=== PATIENT | male | born 1990 | race Caucasian/White ===

== ENCOUNTER 2023-10-22 13:36 | Emergency (ER) | payer OTHER, SELFPAY ==
[2023-10-22 13:58] VITALS: BP 143/81; PULSE 78; RESP 20; TEMP 36.5; O2SAT 98
--- NOTE | 2023-10-22 14:21 | ED.URI ---
HPI - URI/Sore Throat General Chief Complaint: Upper Respiratory Infection Stated Complaint: Stuffy nose, Ear pain History of Present Illness HPI Narrative: PATIENT PRESENTS WITH BILATERAL EAR PAIN AND NASAL CONGESTION. PATIENT STATES HE HAD TUBES A CHILD AND HISTORY OF RECENT EAR INFECTIONS. PATIENT DENIES ANY DRAINAGE FROM HIS EARS NO FEVER. PATIENT IS NOT TAKING ANYTHING [id number] FOR HIS SYMPTOMS. Related Data Allergies Allergy/AdvReac Type Severity Reaction Status Date / Time No Known Allergies Allergy Unverified 11/22/13 16:00 Review of Systems Review of Systems: CONSTITUTIONAL: DENIES CHILLS, OR SWEATS. REPORTS FEVER AND GENERALIZED BODY ACHES EYES: DENIES VISUAL CHANGES, REDNESS, OR DISCHARGE. ENT: DENIES OTALGIA. REPORTS NASAL CONGESTION RUNNY NOSE AND SORE THROAT CARDIOVASCULAR: DENIES CHEST PAIN, PALPITATIONS, OR EDEMA. RESPIRATORY: DENIES DYSPNEA. REPORTS OCCASIONAL COUGH GASTROINTESTINAL: DENIES ABDOMINAL PAIN, NAUSEA, VOMITING, OR DIARRHEA. GENITOURINARY: DENIES DYSURIA OR HEMATURIA. SKIN: DENIES RASH OR ITCHING. MUSCULOSKELETAL: DENIES BACK PAIN, JOINT PAIN, OR MYALGIA. REPORTS GENERALIZED BODY ACHES NEUROLOGIC: DENIES HEADACHE, NUMBNESS, OR WEAKNESS. PSYCHIATRIC: DENIES ANXIETY OR DEPRESSION. PMFSH Comments AT TIME OF SIGNATURE, AGREE WITH NURSING PAST MEDICAL, SURGICAL, SOCIAL AND FAMILY HISTORY. THERE IS NO RELEVANT FAMILY HISTORY PERTINENT TO THE PRESENTING COMPLAINT Exam Narrative: THE PATIENT IS A WELL-DEVELOPED, WELL-NOURISHED IN NO ACUTE DISTRESS. SKIN: SKIN IS WARM AND DRY WITHOUT ERYTHEMA, SWELLING OR EXUDATE. THERE IS GOOD TURGOR. NO TENTING. HEAD: ATRAUMATIC. NORMOCEPHALIC. NO TEMPORAL OR SCALP TENDERNESS. EYES: MOIST AND BRIGHT. SCLERA AND CONJUNCTIVAE NORMAL. NO DISCHARGE. PERRLA. EXTRAOCULAR MOTIONS INTACT. GROSS VISUAL ACUITY INTACT. EARS: PINNA IS NORMAL SHAPE AND CONTOUR. CLEAR EXTERNAL AUDITORY CANALS. MODERATE AMOUNT OF ERYTHEMA TO BOTH CANALS BULGING TYMPAMINC MEMBRANES BILATERALLY NOSE: PINK, MOIST MUCOSA WITH GOOD AIR MOVEMENT. CLEAR RHINORRHEA WITHOUT NASAL FLARING. SEPTUM MIDLINE. MOUTH: MOIST MUCOUS MEMBRANES. THROAT; MILD ERYTHEMA NOTED TO POSTERIOR OROPHARYNX WITH MODERATE POSTNASAL DRAINAGE. WITHOUT EXUDATE OR ULCERATION.. UVULA MIDLINE. NORMAL MOVEMENT OF SOFT PALATE. NECK: SUPPLE AND NONTENDER WITH FULL RANGE OF MOTION WITHOUT DISCOMFORT. NO MENINGEAL SIGNS. LUNGS: EQUAL AND BILATERAL BREATH SOUNDS WITHOUT WHEEZES, RALES OR RHONCHI. CHEST: THE CHEST WALL IS WITHOUT RETRACTIONS OR USE OF ACCESSORY MUSCLES. HEART: HAS A REGULAR RATE AND RHYTHM WITHOUT MURMUR, GALLOPS, CLICK OR RUB. ABDOMEN: SOFT, NONTENDER WITH POSITIVE ACTIVE BOWEL SOUNDS. NO REBOUND TENDERNESS. EXTREMITIES: WITHOUT CYANOSIS, CLUBBING OR EDEMA. EQUAL 2+ DISTAL PULSES AND 2 SECOND CAPILLARY REFILL NOTED. NEUROLOGIC: ALERT, ACTIVE, . THE PATIENT MOVES ALL EXTREMITIES WITH NORMAL MUSCLE STRENGTH. NORMAL MUSCLE TONE IS NOTED. NORMAL COORDINATION IS NOTED. NO FOCAL NEUROLOGICAL FINDINGS NOTED. Course Course Level of Care: Express Care Visit Vital Signs Vital signs: Vital Signs Temperature 36.5 C 10/22/23 13:58 Pulse Rate 78 10/22/23 13:58 Respiratory Rate 20 10/22/23 13:58 Blood Pressure 143/81 H 10/22/23 13:58 Pulse Oximetry 98 10/22/23 13:58 Oxygen Delivery Room Air 10/22/23 13:58 Temperature 36.5 C 10/22/23 13:58 Pulse Rate 78 10/22/23 13:58 Respiratory Rate 20 10/22/23 13:58 Blood Pressure 143/81 H 10/22/23 13:58 Pulse Oximetry 98 10/22/23 13:58 Oxygen Delivery Room Air 10/22/23 13:58 PLEASE HARSHIL SCHEDULE A FOLLOWUP VISIT WITH YOUR PERSONAL PHYSICIAN FOR FURTHER EVALUATION AND TREATMENT. INCLUDING RECHECK AND DISCUSSION OF YOUR BLOOD PRESSURE. IF YOUR SYMPTOMS PERSIST, CHANGE OR WORSEN SIGNIFICANTLY BEFORE YOU CAN CONTACT YOUR PERSONAL PHYSICIAN THEN PLEASE, WITHOUT DELAY, GO TO THE EMERGENCY DEPARTMENT FOR FURTHER EVALUATION Discharge Simon
== END 2023-10-22 14:36 | disposition home or self-care (01) ==
PROVIDERS: Emergency Provider Nurse Practitioner Family; PCP Family Medicine Sports Medicine
DX: H66.93 Otitis media, unspecified, bilateral (principal)
CPT/HCPCS: 99203; G0463

== ENCOUNTER 2024-09-18 16:44 | Emergency (ER) | payer OTHER, SELFPAY ==
[2024-09-18 17:08] VITALS: BP 146/84; PULSE 70; RESP 20; TEMP 36.9; O2SAT 98
--- NOTE | 2024-09-18 18:24 | ED.EAR ---
HPI - Ear Problem General Chief complaint: Ear Stated complaint: cough/ears Time Seen by Provider: 09/18/24 18:15 Source: patient, RN notes reviewed and old records reviewed Mode of arrival: ambulatory Limitations: no limitations History of Present Illness HPI Narrative: 34-year-old male who presents to Express Care complaints ear pain to the left ear for the past 2 days reports he has had some respiratory symptoms with cough and runny nose for 1.5 weeks, states cough is now loose and productive, Patient reports no known fevers chills or sweats. He denies any shortness of breath with respirations nonlabored and SAO2 98% on room air. Patient reports that he has taken some Zyrtec MD Complaint: ear pain and other (cough) Location: left ear Duration: constant Severity: moderate Discharge from ear: Reports no Treatment prior to arrival: other (Zyrtec) Related Data Allergies Allergy/AdvReac Type Severity Reaction Status Date / Time No Known Allergies Allergy Verified 09/18/24 17:11 Review of Systems Review of Systems: CONSTITUTIONAL: Denies malaise, chills, sweats, or fever. EYES: Denies visual changes, redness, or discharge. ENT: Reports rhinorrhea, congestion, sinus pressure, left otalgia and no sore throat. CARDIOVASCULAR: Denies chest pain, palpitations, or edema. RESPIRATORY: Reports productive cough.? Denies dyspnea. GASTROINTESTINAL: Denies abdominal pain, nausea, vomiting, diarrhea SKIN: Denies rash or itching. MUSCULOSKELETAL: Denies myalgia. NEUROLOGIC: Denies headache. All systems reviewed & are unremarkable except as noted in HPI and below PMFSH Social History Social History (Updated 09/21/24 @ 08:35 by Leonora Dubose NP) Smoking status: Never smoker Alcohol intake: current Alcohol use details: rare social Substance use type: does not use Living arrangements: with family Gender identity (if verbalized by the patient): Male Comments At time of signature, agree with nursing past medical, surgical, social and family history. There is no relevant family history pertinent to the presenting complaint Exam Narrative: GENERAL: Well-appearing, well-nourished, obese and in no acute distress. HEAD: Normocephalic EYES: PERRLA, conjunctivae clear ENT: Nares clear, turbinates edematous and erythematous, clear discharge. Mucous membranes moist.Left TM red and bulging,Right TM pearly sunshine with dull light reflex; no tragal tenderness. Oropharynx erythematous without lesions. Tonsils not enlarged and without exudate, no drooling, no hoarseness, no trismus, uvula midline.post nasal drainage NECK: Supple. No lymphadenopathy CHEST: Clear to auscultation, breath sounds equal. No wheezing, rhonchi, rales, or stridor. No respiratory distress, speaks in full sentences.productive cough,SAO2 98% on room air HEART: Regular rate and rhythm. No murmur heard. SKIN: Warm, dry, no rash. NEURO: Alert and oriented x3. PSYCH: Normal mood and affect Course Course Emergency Course: Patient is aware of diagnosis, understands and agrees to treatment plan.? Anticipatory guidance given.? Patient agrees to follow-up as directed and is aware of reasons to seek care at the emergency department. Portions of this record may have been created with voice recognition software Level of Care: Express Care Visit Vital Signs Vital signs: Vital Signs Temperature 36.9 C 09/18/24 17:08 Pulse Rate 70 09/18/24 17:08 Respiratory Rate 20 09/18/24 17:08 Blood Pressure 146/84 H 09/18/24 17:08 Pulse Oximetry 98 09/18/24 17:08 Oxygen Delivery Room Air 09/18/24 17:08 Temperature 36.9 C 09/18/24 17:08 Pulse Rate 70 09/18/24 17:08 Respiratory Rate 20 09/18/24 17:08 Blood Pressure 146/84 H 09/18/24 17:08 Pulse Oximetry 98 09/18/24 17:08 Oxygen Delivery Room Air 09/18/24 17:08 Reviewed Medical Decision Making Differential Diagnosis Differential Diagnosis: URI, otitis media, viral infection, sinusitis, acute cough Medical Records Medical records reviewed: Yes I reviewed the external patient's medical records. Vital Signs Vital Signs: Vital Signs Temperature 36.9 C 09/18/24 17:08 Pulse Rate 70 09/18/24 17:08 Respiratory Rate 20 09/18/24 17:08 Blood Pressure 146/84 H 09/18/24 17:08 Pulse Oximetry 98 09/18/24 17:08 Oxygen Delivery Room Air 09/18/24 17:08 Temperature 36.9 C 09/18/24 17:08 Pulse Rate 70 09/18/24 17:08 Respiratory Rate 20 09/18/24 17:08 Blood Pressure 146/84 H 09/18/24 17:08 Pulse Oximetry 98 09/18/24 17:08 Oxygen Delivery Room Air 09/18/24 17:08 Critical Care Time Critical Care Time Critical Care Time: No Discharge Plan Discharge Clinical Impression: Acute cough Otitis media Qualifiers: Otitis media type: serous Chronicity: acute Laterality: left Recurrence: not specified as recurrent Qualified Code(s): H65.02 - Acute serous otitis media, left ear Patient Disposition: Home, Self-Care Condition: Stable Instructions: Antibiotic Form Additional Instructions: Increase fluids especially juices and water [id number]-toa-[id number] cough and cold medicine of your choice for your symptoms Zyrtec Claritin or Lula daily Steroids as directed--take with food heat to the face 20-30 minutes 4-6 times a day for pain Salt water gargles, throat lozenges or throat sprays as desired Antibiotic as directed--finished the medication If your symptoms persist, change or worsen significantly before you can contact your personal physician then please, without delay, go to the emergency department for further evaluation. Follow-up with PCP in 7-10 days or sooner if needed Follow up with PCP soon in regards to your blood pressure which is elevated above threshold for referral. Blood pressure above 120/80 may indicate pre-hypertension.146/84 Patient Language: Bolivian Prescriptions: New amoxicillin-pot clavulanate 875-125 mg tablet 1 tablet PO Q12H Qty: 20 0RF prednisone 20 mg tablet 20 mg PO BID Qty: 10 0RF Follow-up/Referrals: Valeria,Leonid Brandt MD [Primary Care Provider] - Time of Disposition: 18:29 Quality [place] Coma Scale Eyes: Open Verbal: Oriented and Alert Motor: Follows Commands Enrico Coma Total Score: 15
== END 2024-09-18 18:36 | disposition home or self-care (01) ==
PROVIDERS: Emergency Provider Registered Nurse; PCP Family Medicine
DX: R05.1 Acute cough (principal)
CPT/HCPCS: 99213; G0463

== ENCOUNTER 2025-01-15 19:11 | Emergency (ER) | payer OTHER, SELFPAY ==
--- OUTSIDE RECORDS SUMMARY | 2025-01-15 19:13 | XMS_ITS | Clinical Summary ---
Author Organization [facility] Address [address] [place] [address] Phone Care Team Providers Care Curtain Inspector Name Role Phone Provider, None Primary Care Provider Unavailabl e Allergies No known active allergies Medications No known medications Family History Medical History Relation Name Comments Diabetes Father Cancer Maternal Grandfather thyroid Diabetes Mother Relation Name Status Comments Father Maternal Grandfather Mother Social History Tobacco Use Types Packs/Day Years Used Date Smoking Tobacco: Never Smokeless Tobacco: Former Quit: 03/28/2018 Alcohol Use Standard Drinks/Week Comments Yes 0 (1 standard drink = 0.6 oz pur e alcohol) socially- nothing consistent PHQ-2 Answer Date Recorded Total Score - Questions 1-9 0 01/2020 Sexually Active Control Partners Comments Yes I.U.D. Female Sex and Gender Information Value Date Recorded Sex Assigned at Not on file Legal Sex Male 10:15 AM [employer]SERVATION WORK[employer] Gender Identity Not on file Sexual Orientation Not on file Last Filed Vital Signs Vital Sign Reading Time Taken Comments Blood Pressure 130/80 07/12/2020 1:44 PM CDT Pulse 77 07/12/2020 1:44 PM CDT Temperature 36.7 C (98.1 F) 07/12/2020 1:44 PM CDT Respiratory Rate 16 07/12/2020 1:44 PM CDT Oxygen Saturation 98% 07/12/2020 1:44 PM CDT Inhaled Oxygen Concentration - - Weight 145.5 kg (320 lb 12.8 oz) 07/12/2020 1:44 PM CDT Height 188 cm (6' 2 ) 07/12/2020 1:44 PM CDT Body Mass Index 41.19 07/12/2020 1:44 PM CDT Plan of Treatment Health Maintenance Due Date Last Done Comments Hepatitis C Virus (HCV) Screening 1992 TdaP Immunization 1992 Hepatitis B Immunization (1 of 3 - 19+ 3-dose series) 2011 Influenza Immunization (#1) 2024 SARS-COV-2 Immunization (3 - 2023- season) 2024 12/23/2020, 12/02/2020 Respiratory Syncytial Virus (RSV) Immunization (Adult) (1 - 1-dose 75+ series) 2067 Meningococcal Immunization (ACWY) Aged Out No longer eligible b ased on patient's age to complete this topic Pneumococcal Immunization Combined Aged Out No longer eligible b ased on patient's age to complete this topic Rotavirus Immunization Aged Out No lo nger eligible based on patient's age to complete this topic Care Teams Curtain Inspector Relationship Specialty Start Date End Date Provider, None [place] PCP - General 07/06/22
--- OUTSIDE RECORDS SUMMARY | 2025-01-15 19:13 | XMS_ITS | Continuity of Care Document ---
Author Organization [facility] Address [address] [place] [address] [address] [place] [address] Phone Care Team Providers Care Automated Cutting Machine Operator Name Role Phone Whitfield OD, Jackson Unavailable Unavailable Procedures Procedure Date Eye Exam & Treatment Refraction CL Replacement - [facility] Disp W/BW Soft [facility] CL Replacement - [facility] Disp W/BW Soft [employer] Solar CL Replacement - [facility] Disp W/BW Soft [facility] CL Replacement - [facility] Disp W/BW Soft [facility] CL Replacement - [facility] Disp W/BW Soft Sales Tax CL Replacement - [facility] Disp W/BW Soft [facility] CL Replacement - [facility] Other 007 [facility] Eye Exam & Treatment Refraction CL Replacement - [facility] Disp W/BW Soft [facility] CL Replacement - [employer] Disp W/BW Soft [employer] Solar CL Replacement - [facility] Disp W/BW Soft [facility] Advance Directives Directive Yes / No Effective Date File Name No Information Encounters Encounter Description Practice Location Reason(s) For Visit Diagnoses Date Provider Providers Copied on Encounter [facility], [address] [place] [address] [address], [place], [place], [id number], [place] tel:[phone] [facility] No Information Sep-0 9-200 9 Whitfield OD Jackson. [address] , [address], [place], [place], [facility], . tel:[phone] [facility], [address] [place] [address] [address], [place], [place], [id number], [place] tel:[phone] SEC [place] No Information Niraj-0 4-200 8 Whitfield OD Jackson. [address] , [address], [place], [place], [facility], [place]. tel:[phone] [facility], [address] [place] [address] [address], [place], [place], [id number], [place] tel:[phone] [facility] No Information Apr-2 2-200 8 Whitfield OD Jackson. [address] , [address], [place], [place], [facility], [place]. tel:[phone] [facility], [address] [place] [address] [address], [place], [place], [id number], [place] tel:[phone] [facility] No Information Feb-2 6-200 8 Whitfield OD Jackson. [address] , [address], [place], [place], [facility], [place]. tel:[phone] [facility], [address] [place] [address] [address], [place], [place], [id number], [place] tel:[phone] [facility] No Information Dec-2 7-200 7 Whitfield OD Jackson. [address] , [address], [place], [facility], [place]. tel:[phone] [facility], [address], [place], [place], [id number], [place] tel:[phone] [facility] [place] No Information Oct-1 0-200 7 Whitfield OD Jackson. [address] [place], [place] [address] , [address], [place], [facility], . tel:[phone] [facility], [address] [place] [address] [address], [place], [place], [id number], tel:[phone] [facility] [place] No Information Aug-1 4-200 7 Whitfield OD Jackson. [facility] [address] , [address], [place], [place], [facility], . tel:[phone] [facility], [address] [place] [address] [address], [place], [place], [id number], tel:[phone] [facility] [place] No Information Niraj-2 9-200 7 Whitfield OD Jackson. [address] [place], [place] [address], [place], [place], [facility], . tel:[phone] [facility], [address] [place] [address] [address], [place], [place], [id number], tel:[phone] [facility] [place] No Information May-1 0-200 7 Whitfield OD Jackson. [address] [place], [place] [address]ate Esther [address], [place], [facility], . tel:[phone] [facility], [address] [place] [address] [address], [place], [place], [id number], [place] tel:[phone] [facility] [place] No Information Mar-1 2-200 7 Whitfield OD Jackson. [address] [place], [place] [address] , [address], [place], [place], [facility], [place]. tel:[phone] Family History Family Member Type Diagnosis Age At Onset No Information Payers Payer name Insurance type Covered republican ID Maria A page(s) [facility] Commercial 09 [id number] Social History Type Description Quantity Date Captured Comments Sex Male Smoking Status No Information Chief Complaint And Reason For Visit No Information Reason For Referral Reason For Referral No Information History Of Present Illness Encounter Date Complaint History Of Prese nt Illness No Information Functional Status Date Functional Assessmen t No Information Instructions Date Instruction Additional Infor mation No Information Assessments Type Assessment Date No Information Patient Care Teams Name Effective Dates (start - stop) Status Members No Information
--- OUTSIDE RECORDS SUMMARY | 2025-01-15 19:14 | XMS_ITS | Continuity of Care Document ---
Author Organization [facility] Address [address] [place] [address] [address] [place] [address] Phone Care Team Providers Care Ror Engineer Name Role Phone Whitfield OD, Jackson Unavailable Unavailable Procedures Procedure Date Eye Exam & Treatment Refraction CL Replacement - [facility] Disp W/BW Soft [facility] CL Replacement - [facility] Disp W/BW Soft OMEGA MORGAN CL Replacement - [employer] Disp W/BW Soft [facility] CL Replacement - [employer] Disp W/BW Soft [facility] CL Replacement - [employer] Disp W/BW Soft Sales Tax CL Replacement - [employer] Disp W/BW Soft [facility] CL Replacement - [facility] Other [facility]7 [facility] Eye Exam & Treatment Refraction CL Replacement - [employer] Disp W/BW Soft [facility] CL Replacement - [employer] Disp W/BW Soft OMEGA MORGAN CL Replacement - [facility] Disp W/BW Soft [facility] Advance Directives Directive Yes / No Effective Date File Name No Information Encounters Encounter Description Practice Location Reason(s) For Visit Diagnoses Date Provider Providers Copied on Encounter [facility], [address] [place] [address] [address], [place], [place], [id number], [place] tel:[phone] [facility] No Information Sep-0 9-200 9 Whitfield OD Jackson. [address] , [address], [place], [place], [facility], . tel:[phone] [facility], [address] [place] [address] [address], [place], [place], [id number], [place] tel:[phone] SEC [place] No Information Niraj-0 4-200 8 Whitfield OD Jackson. [address] , [address], [place], [place], [facility], [place]. tel:[phone] [facility], [address] [place] [address] [address], [place], [place], [id number], [place] tel:[phone] [facility] No Information Apr-2 2-200 8 Whitfield OD Jackson. [address] , [address], [place], [facility], [place]. tel:[phone] [facility], [address] [place] [address] [address], [place], [place], [id number], [place] tel:[phone] [facility] No Information Feb-2 6-200 8 Whitfield OD Jackson. [address] , [address], [place], [facility], [place]. tel:[phone] [facility], [address] [place] [address] [address], [place], [place], [id number], [place] tel:[phone] [facility] No Information Dec-2 7-200 7 Whitfield OD Jackson. [address], [place], [facility], [place]. tel:[phone] [facility], [address], [place], [place], [id number], [place] tel:[phone] [facility] No Information Oct-1 0-200 7 Whitfield OD Jackson. [address] [place], [place] [address] , [address], [place], [facility], . tel:[phone] [facility], [address] [place] [address] [address], [place], [place], [id number], tel:[phone] [facility] No Information Aug-1 4-200 7 Whitfield OD Jackson. [facility] [address] , [address], [place], [facility], . tel:[phone] [facility], [address] [place] [address] [address], [place], [place], [id number], tel:[phone] [facility] No Information Niraj-2 9-200 7 Whitfield OD Jackson. [address] [place], [place] [address], [place], [facility], . tel:[phone] [facility], [address] [place] [address] [address], [place], [place], [id number], tel:[phone] [facility] No Information May-1 0-200 7 Whitfield OD Jackson. [address] [place], [place] [address]ate Esther [address], [place], [facility], . tel:[phone] [facility], [address] [place] [address] [address], [place], [place], [id number], [place] tel:[phone] [facility] No Information Mar-1 2-200 7 Whitfield OD Jackson. [address] [place], [place] [address] , [address], [place], [facility], [place]. tel:[phone] Family History Family Member Type Diagnosis Age At Onset No Information Payers Payer name Insurance type Covered green party ID Maria A page(s) [facility] Commercial 09 [id number] Social History Type Description Quantity Date Captured [...]
[2025-01-15 19:19] VITALS: BP 129/69; PULSE 88; RESP 18; TEMP 37.3; O2SAT 97
--- NOTE | 2025-01-15 19:50 | ED_ITS ---
HPI - Ear Problem General Chief complaint: Ear Stated complaint: left ear pain Time Seen by Provider: 01/15/25 19:30 Source: patient, RN notes reviewed and old records reviewed Mode of arrival: ambulatory Limitations: no limitations History of Present Illness HPI Narrative: 34 year old male who presents to [facility] care with complaints of left ear pain which started MD Complaint: ear pain Location: left ear Related Data Home Medications ?Medication ?Instructions ?Recorded ?Confirmed ?Last Taken ?Type No Home Medications 01/15/25 01/15/25 Unknown History Allergies Allergy/AdvReac Type Severity Reaction Status Date / Time No Known Allergies Allergy Verified 01/15/25 19:23 PENDING SALE TO [facility] Social History Social History (Updated 09/21/24 @ 08:35 by Leonora Dubose NP) Smoking status: Never smoker Alcohol intake: current Alcohol use details: rare social Substance use type: does not use Living arrangements: with family Gender identity (if verbalized by the patient): Male Course Vital Signs Vital signs: Vital Signs Temperature 37.3 C 01/15/25 19:19 Pulse Rate 88 01/15/25 19:19 Respiratory Rate 18 01/15/25 19:19 Blood Pressure 129/69 01/15/25 19:19 Pulse Oximetry 97 01/15/25 19:19 Oxygen Delivery Room Air 01/15/25 19:19 Temperature 37.3 C 01/15/25 19:19 Pulse Rate 88 01/15/25 19:19 Respiratory Rate 18 01/15/25 19:19 Blood Pressure 129/69 01/15/25 19:19 Pulse Oximetry 97 01/15/25 19:19 Oxygen Delivery Room Air 01/15/25 19:19 Medical Decision Making Vital Signs Vital Signs: Vital Signs Temperature 37.3 C 01/15/25 19:19 Pulse Rate 88 01/15/25 19:19 Respiratory Rate 18 01/15/25 19:19 Blood Pressure 129/69 01/15/25 19:19 Pulse Oximetry 97 01/15/25 19:19 Oxygen Delivery Room Air 01/15/25 19:19 Temperature 37.3 C 01/15/25 19:19 Pulse Rate 88 01/15/25 19:19 Respiratory Rate 18 01/15/25 19:19 Blood Pressure 129/69 01/15/25 19:19 Pulse Oximetry 97 01/15/25 19:19 Oxygen Delivery Room Air 01/15/25 19:19 Discharge Plan Discharge Patient Language: Spanish Prescriptions: No Action No Home Medications Follow-up/Referrals: Valeria,Leonid Brandt MD [Primary Care Provider] -
--- NOTE | 2025-01-15 19:52 | ED.EAR ---
HPI - Ear Problem General Chief complaint: Ear Stated complaint: left ear pain Time Seen by Provider: 01/15/25 19:30 Source: patient, RN notes reviewed and old records reviewed Mode of arrival: ambulatory Limitations: no limitations History of Present Illness HPI Narrative: 34-year-old male who presents to [facility] with complaints of left ear pain which started today and also some pressure to the right ear. Patient reports that he has had history of ear infections in the past, does wear ear plugs at work daily. Patient has not taken any OTC medications for his complaints. Patient reports no known fevers, chills or sweats. MD Complaint: ear pain Location: left ear Duration: constant Severity: mild Discharge from ear: Reports no Treatment prior to arrival: none Related Data Allergies Allergy/AdvReac Type Severity Reaction Status Date / Time No Known Allergies Allergy Verified 01/15/25 19:23 Review of Systems Review of Systems: CONSTITUTIONAL: Denies malaise, chills, sweats, or fever. EYES: Denies visual changes, redness, or discharge. ENT: Reports rhinorrhea, congestion, no sinus pain, positive for otalgia and no sore throat. no CARDIOVASCULAR: Denies chest pain, palpitations, or edema. RESPIRATORY: Reports no cough.? Denies dyspnea. GASTROINTESTINAL: Denies abdominal pain, nausea, vomiting, diarrhea SKIN: Denies rash or itching. MUSCULOSKELETAL: Denies myalgia. NEUROLOGIC: Denies headache. All systems reviewed & are unremarkable except as noted in HPI and below PMFSH Past Medical History Medical History (Updated 01/19/25 @ 09:21 by Leonora Dubose NP) Ear infection Social History Social History (Updated 09/21/24 @ 08:35 by Leonora Dubose NP) Smoking status: Never smoker Alcohol intake: current Alcohol use details: rare social Substance use type: does not use Living arrangements: with family Gender identity (if verbalized by the patient): Male Comments At time of signature, agree with nursing past medical, surgical, social and family history. There is no relevant family history pertinent to the presenting complaint Exam Narrative: GENERAL: Well-appearing, well-nourished, and in no acute distress. HEAD: Normocephalic EYES: PERRLA, conjunctivae clear ENT: Nares clear, turbinates edematous and erythematous, clear discharge. Mucous membranes moist.Right TM red, Left TM pearly sunshine with dull light reflex; no tragal tenderness. Oropharynx erythematous without lesions. Tonsils not enlarged and without exudate, no drooling, no hoarseness, no trismus, uvula midline.post nasal drainage noted NECK: Supple. No lymphadenopathy CHEST: Clear to auscultation, breath sounds equal. No wheezing, rhonchi, rales, or stridor. No respiratory distress, speaks in full sentences.no acute cough noted SAO2 97% on room air HEART: Regular rate and rhythm. No murmur heard. SKIN: Warm, dry, no rash. NEURO: Alert and oriented x3. PSYCH: Normal mood and affect Course Course Emergency Course: Patient is aware of diagnosis, understands and agrees to treatment plan.? Anticipatory guidance given.? Patient agrees to follow-up as directed and is aware of reasons to seek care at the emergency department. Portions of this record may have been created with voice recognition software Level of Care: Express Care Visit Vital Signs Vital signs: Vital Signs Temperature 37.3 C 01/15/25 19:19 Pulse Rate 88 01/15/25 19:19 Respiratory Rate 18 01/15/25 19:19 Blood Pressure 129/69 01/15/25 19:19 Pulse Oximetry 97 01/15/25 19:19 Oxygen Delivery Room Air 01/15/25 19:19 Temperature 37.3 C 01/15/25 19:19 Pulse Rate 88 01/15/25 19:19 Respiratory Rate 18 01/15/25 19:19 Blood Pressure 129/69 01/15/25 19:19 Pulse Oximetry 97 01/15/25 19:19 Oxygen Delivery Room Air 01/15/25 19:19 Reviewed Medical Decision Making Differential Diagnosis Differential Diagnosis: URI, otitis media, allergic rhinitis, Medical Records Medical records reviewed: Yes I reviewed the external patient's medical records. Vital Signs Vital Signs: Vital Signs Temperature 37.3 C 01/15/25 19:19 Pulse Rate 88 01/15/25 19:19 Respiratory Rate 18 01/15/25 19:19 Blood Pressure 129/69 01/15/25 19:19 Pulse Oximetry 97 01/15/25 19:19 Oxygen Delivery Room Air 01/15/25 19:19 Temperature 37.3 C 01/15/25 19:19 Pulse Rate 88 01/15/25 19:19 Respiratory Rate 18 01/15/25 19:19 Blood Pressure 129/69 01/15/25 19:19 Pulse Oximetry 97 01/15/25 19:19 Oxygen Delivery Room Air 01/15/25 19:19 reviewed Critical Care Time Critical Care Time Critical Care Time: No Discharge Plan Discharge Clinical Impression: Otitis media Qualifiers: Otitis media type: serous Chronicity: acute Laterality: right Recurrence: not specified as recurrent Qualified Code(s): H65.01 - Acute serous otitis media, right ear Patient Disposition: Home Condition: Stable Instructions: Antibiotic Form, Ear Infection (GEN) Additional Instructions: Increase fluids especially juices and water [id number] cough and cold medicine of your choice for your symptoms Zyrtec Claritin or Lula daily heat to the face 20-30 minutes 4-6 times a day for pain Salt water gargles, throat lozenges or throat sprays as desired Antibiotic as directed--finished the medication Tylenol or Ibuprofen for any fever or pain If your symptoms persist, change or worsen significantly before you can contact your personal physician then please, without delay, go to the emergency department for further evaluation. Follow-up with PCP in 7-10 days or sooner if needed Follow up with PCP soon in regards to your blood pressure which is elevated above threshold for referral. Blood pressure above 120/80 may indicate pre-hypertension. 129/69 Patient Language: Tongan Prescriptions: New amoxicillin-pot clavulanate 875-125 mg tablet 1 tablet PO Q12H Qty: 20 0RF Rx Instructions: take with food encourage probiotics while taking this medication Follow-up/Referrals: Valeria,Leonid Brandt MD [Primary Care Provider] - Time of Disposition: 19:57 Quality [place] Coma Scale Eyes: Open Verbal: Oriented and Alert Motor: Follows Commands Enrico Coma Total Score: 15
== END 2025-01-15 20:00 | disposition home or self-care (01) ==
PROVIDERS: Emergency Provider Registered Nurse; PCP Family Medicine
DX: H65.01 Acute serous otitis media, right ear (principal)
CPT/HCPCS: 99213; G0463